=== PATIENT | female | born 1950 | race African-American/Black ===

== ENCOUNTER 2018-01-03 13:47 | Emergency (ER) | payer MEDICARE ==
[~2018-01-03] VITALS: Ht 175.3 cm; Wt 88.5 kg
[~2018-01-03 13:47] MED LIST: HYDROCHLOROTHIA25 MG ORAL; POTASSIUM CHLO20 ME1 ORAL
[2018-01-03] MEDS ORDERED: Acetaminophen 500mg (ES) tab ORAL ONE (14:15)
[2018-01-03] MEDS ORDERED: ACETAMINOPHEN500 M3 ORAL (14:21)
[2018-01-03 15:02] VITALS: BP 159/88
[2018-01-03 15:04] VITALS: BP 159/88
--- NOTE | 2018-01-03 15:22 | Emergency Room Report ---
History of Present Illness General Chief Complaint: Laceration Source: Patient Present Illness HPI Patient is a 67-year-old female presented after increased the left index finger pain. Patient reports having injured her finger with scissors. She reports having been taking anticoagulation with Coumadin. She reports having some initial bleeding which had subsided after she wrapped with a pressure dressing. She reports having had tetanus vaccine less than 10 years ago she denies any other locations of pain. Patient is right-hand dominant. She is retired Allergies: Coded Allergies: PENICILLINS (Verified Allergy, 11/21/12) Patient History Past Medical History: see triage record Last Menstrual Period: NA Now: No Reviewed Nursing Documentation: PMH: Agreed; PSxH: Agreed Nursing Documentation-PMH Past Medical History: No History, Except For Hx Cardiac Problems: Yes Hx Hypertension: Yes Hx Cancer: No - [place] RIGHT BREAST TUMOR REMOVED 1966 Hx Gastrointestinal Problems: No Hx Neurological Problems: Yes Hx Vertigo: Yes Hx Dizziness: Yes Hx Syncope: Yes Review of Systems All Other Systems: negative except mentioned in HPI Physical Exam Vital Signs Date Time Temp Pulse Resp B/P (MAP) Pulse Ox O2 Delivery O2 Flow Rate FiO2 01/03/18 13:53 98.8 70 18 162/89 100 Room Air General Appearance: well appearing, no apparent distress, alert, GCS 15 Head: normocephalic, atraumatic ENT: hearing grossly normal, normal voice Neck: full range of motion, supple Respiratory: no respiratory distress, speaking full sentences Cardiovascular #1: normal inspection, normal peripheral pulses, regular rate, rhythm Musculoskeletal: normal inspection, no calf tenderness Neurologic: normal inspection, alert, oriented x3, responsive, normal gait Psychiatric: mood/affect normal Skin: no rash, laceration - 1cm Medical Decision Making Diagnostic Impression: Primary Impression: Finger laceration ER Course Patient presented for laceration. Differential diagnoses included foreign body , nerve injury, arterial injury among others. The patient's laceration was cleansed and closed with Dermabond. Patient has a benign exam and does not appear to require any further imaging or laboratory testing at this time. The patient is advised wound care.The patient is advised to follow up with primary care doctor in 3-4 days. Patient is advised to return if any worsening condition or if any changes in status that are concerning. This report is dictated with [employer] weed sprayer software which may occasionally lead to discrepancies related to use of this software. Last Vital Signs Date Time Temp Pulse Resp B/P (MAP) Pulse Ox O2 Delivery O2 Flow Rate FiO2 01/03/18 15:04 98.8 76 18 159/88 100 Room Air Status: improved Disposition: HOME, SELF-CARE Condition: Stable Scripts Acetaminophen* (ACETAMINOPHEN EXTRA STRENGTH*) 500 Mg Tablet 500 MG ORAL Q8H PRN for Fever/Headache/Mild Pain, #30 TAB Prov: Dionte Bautista MD 01/03/18 Patient Instructions: Tissue Adhesive Wound Care, [id number] Dionte Bautista MD Jan 03, 2018 15:22
== END 2018-01-03 15:06 | disposition home or self-care (01) ==
LOC: EMR 14:19
DX: S61.211A Laceration without foreign body of left index finger without damage to nail, initial encounter (principal); W26.8XXA Contact with other sharp object(s), not elsewhere classified, initial encounter; Y93.89 Activity, other specified; Y92.89 Other specified places as the place of occurrence of the external cause; I10 Essential (primary) hypertension; Z88.0 Allergy status to penicillin
CPT/HCPCS: 99282